=== PATIENT | female | born 2000 | race Asian ===

== ENCOUNTER → 2021-01-02 | Outpatient (CLI) | payer OTHER ==
--- NOTE | 2021-01-03 14:30 | ECHO ---
ECHOCARDIOGRAM DATE OF PROCEDURE: 01/02/2021 Age: 20 Gender: Height: Weight: REFERRING PROVIDER: Jayy Juarez PA-C. PATIENT LOCATION: Outpatient. REASON FOR THE TESTING: Heart murmur. 2D MEASUREMENTS: IVS 0.8 cm LV 4.2 cm LVPW 0.9 cm LA 2.5 cm Aorta 2.3 cm IVC 2.1 cm DOPPLER MEASUREMENT Peak velocity across the LVOT 1.1 m/s Maximum tricuspid valve velocity 2.2 m/s 2D COMMENTS: 1. Normal left ventricular size, wall thickness, and normal global left ventricular systolic function. The estimated left ventricular systolic ejection fraction is 60 to 65%. 2. Normal left atrium. Normal right atrium and right ventricle. 3. The atrial septum appeared to be normal without evidence of defect or shunt. 4. Normal aortic root. 5. No pericardial effusion seen. 6. The aortic valve, mitral valve, tricuspid valve, and pulmonic valve appear to be normal. The proximal pulmonary artery branches also appeared to be normal. 7. The inferior vena cava was mildly enlarged, central venous pressure is most likely elevated. DOPPLER: Doppler detects trace mitral regurgitation, trace tricuspid regurgitation, and mild pulmonic regurgitation. Calculated pulmonary artery systolic pressure was normal. IMPRESSION: 1. Normal global left ventricular systolic function. 2. Trace mitral regurgitation. 3. Trace tricuspid regurgitation with a normal calculated pulmonary artery systolic pressure. 4. Mild pulmonic regurgitation. 5. The inferior vena cava was mildly enlarged.
== END ==
LOC: M CARPUL 08:58
PROVIDERS: ATTEND Physician Assistant
DX: R01.1 Cardiac murmur, unspecified (principal)